=== PATIENT | female | born 1955 | race Caucasian/White ===

== ENCOUNTER 2020-09-22 18:05 | Inpatient (IN) ==
[2020-09-22] MEDS ORDERED: 0.9 % Sodium Chloride 1,000 ML IVC ONE (18:14)
[2020-09-22] MEDS ORDERED: Naloxone 0.4 MG/ML INJ IVP ONE (18:16)
[2020-09-22 19:35] LABS: Alanine Aminotransferase 26 Units/L (7-52); Albumin 3.2 g/dL (3.5-5.7); Alkaline Phosphatase 88 Units/L (34-104); Aspartate Amino Transferase 47 Units/L (13-39); BUN/Creatinine Ratio 11 (6-26); Bilirubin,Total 0.2 mg/dL (0.3-1.0); Blood Urea Nitrogen 25 mg/dL (8-23); Calcium 8.1 mg/dL (8.6-10.3); Carbon Dioxide 23 mEq/L (23-29); Chloride 94 mEq/L (98-107); Globulin 3.3 g/dL (2.4-3.5); Glucose 57 mg/dL (70-105); Osmolality,Calculated 264 (280-300); Potassium 2.9 mEq/L (3.5-5.1); Sodium 126 mEq/L (136-145); Total Protein 6.5 g/dL (6.4-8.9); Troponin I < 0.03 ng/mL (< 0.04); eGFR For African Americans 26 (> 60); eGFR For Non-African Americans 21 (> 60)
[2020-09-22] MEDS ORDERED: Azithromycin 500 MG in 0.9 % Sodium Chloride 250 ML IVPB ONE (19:40)
[2020-09-22 19:48] LABS: Thyroid Stimulating Hormone 1.509 mcIU/mL (0.340-5.600)
[2020-09-22 19:50] LABS: Bacteria,Urine Few per hpf (None-Few); Bilirubin,Urine Negative (Negative); Blood,Urine Moderate (Negative); Clarity,Urine Clear (Clear); Color,Urine Colorless (Yellow); Glucose,Urine (UA) Normal (Normal); Ketones,Urine Negative (Negative); Leukocyte Esterase,Urine Negative (Negative); Nitrite,Urine Negative (Negative); Protein,Urine 30 mg/dL (Neg-Trace); RBC,Urine 0-3 per hpf (0-3); Specific Gravity,Urine 1.006 (1.010-1.025); Squamous Epithelial Cell,Urine Few per hpf (None-Few); Urobilinogen,Urine Normal (Normal); WBC,Urine 0-3 per hpf (0-3)
[2020-09-22 20:43] LABS: Adenovirus Not Detected (Not Detect); Bordetella Pertussis Not Detected (Not Detect); Chlamydophila pneumoniae Not Detected (Not Detect); Coronavirus 229E Not Detected (Not Detect); Coronavirus HKU1 Not Detected (Not Detect); Coronavirus NL63 Not Detected (Not Detect); Coronavirus OC43 Not Detected (Not Detect); Human Metapneumovirus Not Detected (Not Detect); Human Rhinovirus/Enterovirus Not Detected (Not Detect); Influenza A Subtype 2009 H1 Not Detected (Not Detect); Influenza B Not Detected (Not Detect); Mycoplasma pneumoniae Not Detected (Not Detect); Parainfluenza Virus 1 Not Detected (Not Detect); Parainfluenza Virus 2 Not Detected (Not Detect); Parainfluenza Virus 3 Not Detected (Not Detect); Parainfluenza Virus 4 Not Detected (Not Detect); Respiratory Syncytial Virus Not Detected (Not Detect); SARS-CoV-2 Not Detected (Not Detect)
[2020-09-22 21:13] LABS: ABG Base Excess -4 mEq/L (-2 to 3); ABG HCO3 22 mEq/L (21-27); ABG Oxygen Saturation 94 % (95-98); ABG PCO2 47 mmHg (35-45); ABG PH 7.28 pH Units (7.32-7.45); ABG PO2 80 mmHg (85-104); ABG TCO2 24 mEq/L (20-26); Blood Gas Modality 2LPM
[2020-09-22] MEDS ORDERED: *HR* Dextrose 50 % in Water (Vial) 50 ML VIAL IVP ONE (21:22)
[2020-09-22] MEDS ORDERED: Ondansetron 4 MG/2 ML VIAL IVP PRN (21:35)
[2020-09-22] MEDS ORDERED: Acetaminophen 325 MG TABLET PO PRN (21:35)
[2020-09-22] MEDS ORDERED: Naloxone 0.4 MG/ML INJ IVP PRN (21:35)
[2020-09-22] MEDS ORDERED: *HR* Dextrose 50 % in Water (Vial) 50 ML VIAL IVP PRN (21:41)
[2020-09-22] MEDS ORDERED: D5% in Water 1,000 ML IVC PRN (21:41)
[2020-09-22] MEDS ORDERED: Dextrose Gel 15 GM/37.5 ML TUBE PO PRN ×2 (21:41)
[2020-09-22] MEDS ORDERED: cefTRIAXone 1,000 MG in Water for inj. (sterile) 10 ML IVP ONE (22:00)
[2020-09-22] MEDS ORDERED: methylPREDNISolone 125 MG/2 ML VIAL IVP ONE (22:16)
[2020-09-22] MEDS ORDERED: Ipratropium/Albuterol Neb 3 ML IH PRN (22:39)
[2020-09-22] MEDS: Ringers Solution, Lactated 1,000 ML IVC SCH (23:22)
[2020-09-23] MEDS: Insulin LISPRO 300 UNITS/3 ML VIAL SQ SCH ×5 (00:23→20:35)
[2020-09-23] MEDS: Ipratropium/Albuterol Neb 3 ML IH SCH ×7 (00:23→22:56)
[2020-09-23 01:29] LABS: INR 1.1; Prothrombin Time 12.3 Seconds (9.4-12.1)
[2020-09-23 01:39] LABS: Albumin 2.8 g/dL (3.5-5.7); Bilirubin,Total 0.1 mg/dL (0.3-1.0); Calcium 7.2 mg/dL (8.6-10.3); Globulin 2.9 g/dL (2.4-3.5); Magnesium 1.5 mg/dL (1.6-2.6); Phosphorous 3.4 mg/dL (2.7-4.5); Potassium 3.4 mEq/L (3.5-5.1); Total Protein 5.7 g/dL (6.4-8.9)
[2020-09-23 04:12] LABS: ABG Base Excess -3 mEq/L (-2 to 3); ABG HCO3 23 mEq/L (21-27); ABG Oxygen Saturation 93 % (95-98); ABG PCO2 45 mmHg (35-45); ABG PH 7.32 pH Units (7.32-7.45); ABG PO2 73 mmHg (85-104); ABG TCO2 24 mEq/L (20-26)
[2020-09-23] MEDS ORDERED: MethylPREDNISolone 40 MG/ML VIAL IVP SCH (06:00)
[2020-09-23] MEDS: *HR* Heparin 5,000 UNIT/ML VIAL SQ SCH ×4 (06:44→20:35)
[2020-09-23 06:47] LABS: VBG HCO3 22 mEq/L (21-27); VBG PCO2 39 mmHg (41-51); VBG PH 7.36 pH Units (7.32-7.42); VBG PO2 125 mmHg (25-50)
[2020-09-23 07:08] LABS: Eosinophils % 0.1 %; Hematocrit 32.2 % (35.3-44.9); Hemoglobin 9.9 g/dL (11.5-15.4); Immature Granulocytes % 0.5 % (0-4); Lymphocytes % 5.7 %; Mean Corpuscular HGB Conc 30.7 g/dL (31.6-35.5); Mean Corpuscular Hemoglobin 26.3 pg (28.0-33.3); Mean Corpuscular Volume 85.6 fL (83.0-100.0); Mean Platelet Volume 8.8 fL (9.4-12.4); Monocytes % 0.6 %; Platelet Count 311 K/mcL (140-400); Red Blood Count 3.76 M/mcL (3.82-4.97); Red Cell Distribution Width 16.4 % (11.5-14.5); Segmented Neutrophils % 92.8 %; White Blood Count 9.7 K/mcL (4.3-11.1)
[2020-09-23 07:09] LABS: Basophils % 0.3 %; Lymphocytes # 0.6 K/mcL (0.6-4.6); Monocytes # 0.1 K/mcL (0.0-1.3)
[2020-09-23] MEDS: Ringers Solution, Lactated 1,000 ML IVC SCH ×3 (07:13→13:48)
[2020-09-23 07:28] LABS: Creatinine,Urine 38 mg/dL; Protein/Creatinine Ratio,Urine 0.87 mg/mg (0.00-0.20); Sodium, Urine < 10.0 mEq/L
[2020-09-23] MEDS: cefTRIAXone 1,000 MG in Water for inj. (sterile) 10 ML IVP SCH (08:23)
[2020-09-23] MEDS ORDERED: Potassium Chloride Elixir 20 MEQ/15 ML UDC PO ONE (12:45)
[2020-09-23] MEDS ORDERED: Budesonide/Formoterol 160/4.5 1 PUFF INH IH PRN (13:00)
[2020-09-23] MEDS: BuPROPion XL (24 HR) 150 MG TABLET PO SCH (13:40)
[2020-09-23] MEDS: MethylPREDNISolone 40 MG/ML VIAL IVP SCH (16:22)
[2020-09-23] MEDS ORDERED: Insulin LISPRO 300 UNITS/3 ML VIAL SQ SCH (16:30)
[2020-09-23] MEDS ORDERED: cefTRIAXone 1,000 MG in Water for inj. (sterile) 10 ML IVP ONE (19:40)
[2020-09-23] MEDS: ARIPiprazole 5 MG TABLET PO SCH (20:34)
[2020-09-23] MEDS: traZODone 50 MG TABLET PO SCH (20:34)
[2020-09-23] MEDS: Ascorbic Acid 500 MG TABLET PO SCH (20:34)
[2020-09-23] MEDS: Azithromycin 500 MG in 0.9 % Sodium Chloride 250 ML IVPB SCH (20:35)
[2020-09-23] MEDS ORDERED: Insulin DETEMIR 100 UNIT/ML X5UNITS SQ SCH (21:00)
[2020-09-23] MEDS ORDERED: Famotidine 20 MG TABLET PO SCH ×2 (21:00)
[2020-09-23] MEDS: Latanoprost 2.5 ML BOTTLE BOTH EYES SCH (21:51)
[2020-09-24] MEDS: Ipratropium/Albuterol Neb 3 ML IH SCH ×5 (03:38→19:40)
[2020-09-24] MEDS: *HR* Heparin 5,000 UNIT/ML VIAL SQ SCH ×3 (05:56→20:43)
[2020-09-24] MEDS: MethylPREDNISolone 40 MG/ML VIAL IVP SCH (05:58)
[2020-09-24] MEDS: Ringers Solution, Lactated 1,000 ML IVC SCH ×2 (05:59→06:00)
[2020-09-24 08:58] LABS: Basophils % 0.1 %; Hematocrit 32.7 % (35.3-44.9); Hemoglobin 10.2 g/dL (11.5-15.4); Immature Granulocytes % 0.7 % (0-4); Mean Corpuscular HGB Conc 31.2 g/dL (31.6-35.5); Mean Corpuscular Hemoglobin 26.7 pg (28.0-33.3); Mean Corpuscular Volume 85.6 fL (83.0-100.0); Mean Platelet Volume 8.8 fL (9.4-12.4); Monocytes # 0.5 K/mcL (0.0-1.3); Monocytes % 3.1 %; Neutrophils # 14.8 K/mcL (1.6-8.9); Platelet Count 394 K/mcL (140-400); Red Blood Count 3.82 M/mcL (3.82-4.97); Red Cell Distribution Width 17.2 % (11.5-14.5); Segmented Neutrophils % 90.1 %; White Blood Count 16.4 K/mcL (4.3-11.1)
[2020-09-24] MEDS ORDERED: Zinc Sulfate 220 MG CAPSULE PO SCH (09:00)
[2020-09-24 09:24] LABS: Alanine Aminotransferase 20 Units/L (7-52); Albumin 3.1 g/dL (3.5-5.7); Alkaline Phosphatase 74 Units/L (34-104); Aspartate Amino Transferase 21 Units/L (13-39); BUN/Creatinine Ratio 16 (6-26); Bilirubin,Total 0.2 mg/dL (0.3-1.0); Blood Urea Nitrogen 16 mg/dL (8-23); Calcium 8.6 mg/dL (8.6-10.3); Carbon Dioxide 25 mEq/L (23-29); Chloride 104 mEq/L (98-107); Globulin 3.1 g/dL (2.4-3.5); Glucose 203 mg/dL (70-105); Osmolality,Calculated 289 (280-300); Potassium 3.4 mEq/L (3.5-5.1); Sodium 136 mEq/L (136-145); Total Protein 6.2 g/dL (6.4-8.9); eGFR For African Americans > 60 (> 60); eGFR For Non-African Americans 53 (> 60)
[2020-09-24] MEDS: amLODIPine 5 MG TABLET PO SCH (09:35)
[2020-09-24] MEDS: Ascorbic Acid 500 MG TABLET PO SCH ×2 (09:35→21:07)
[2020-09-24] MEDS: Aspirin Enteric Coated 81 MG Tablet PO SCH (09:35)
[2020-09-24] MEDS: cefTRIAXone 1,000 MG in Water for inj. (sterile) 10 ML IVP SCH (09:36)
[2020-09-24] MEDS: Insulin LISPRO 300 UNITS/3 ML VIAL SQ SCH ×4 (09:46→21:46)
[2020-09-24] MEDS: BuPROPion XL (24 HR) 150 MG TABLET PO SCH (14:27)
[2020-09-24] MEDS: Gabapentin 300 MG CAPSULE PO SCH ×2 (14:27→21:07)
[2020-09-24] MEDS ORDERED: Famotidine 20 MG TABLET PO SCH (21:00)
[2020-09-24] MEDS: traZODone 50 MG TABLET PO SCH (21:06)
[2020-09-24] MEDS: ARIPiprazole 5 MG TABLET PO SCH (21:06)
[2020-09-24] MEDS: Azithromycin 500 MG in 0.9 % Sodium Chloride 250 ML IVPB SCH (21:07)
[2020-09-24] MEDS: Latanoprost 2.5 ML BOTTLE BOTH EYES SCH (21:08)
[2020-09-25] MEDS: Ipratropium/Albuterol Neb 3 ML IH SCH ×4 (00:40→11:29)
[2020-09-25 02:21] LABS: Basophils % 0.2 %; Eosinophils % 0.3 %; Hematocrit 31.3 % (35.3-44.9); Hemoglobin 9.8 g/dL (11.5-15.4); Immature Granulocytes % 0.3 % (0-4); Lymphocytes # 3.3 K/mcL (0.6-4.6); Mean Corpuscular HGB Conc 31.3 g/dL (31.6-35.5); Mean Corpuscular Hemoglobin 27.4 pg (28.0-33.3); Mean Corpuscular Volume 87.4 fL (83.0-100.0); Mean Platelet Volume 8.8 fL (9.4-12.4); Monocytes # 1.1 K/mcL (0.0-1.3); Monocytes % 7.2 %; Neutrophils # 10.5 K/mcL (1.6-8.9); Platelet Count 383 K/mcL (140-400); Red Blood Count 3.58 M/mcL (3.82-4.97); Red Cell Distribution Width 17.3 % (11.5-14.5); White Blood Count 14.9 K/mcL (4.3-11.1)
[2020-09-25 02:35] LABS: BUN/Creatinine Ratio 22 (6-26); Blood Urea Nitrogen 21 mg/dL (8-23); Calcium 8.1 mg/dL (8.6-10.3); Carbon Dioxide 26 mEq/L (23-29); Chloride 109 mEq/L (98-107); Glucose 118 mg/dL (70-105); Magnesium 1.6 mg/dL (1.6-2.6); Osmolality,Calculated 294 (280-300); Sodium 140 mEq/L (136-145); eGFR For African Americans > 60 (> 60); eGFR For Non-African Americans 58 (> 60)
[2020-09-25] MEDS: *HR* Heparin 5,000 UNIT/ML VIAL SQ SCH (05:40)
[2020-09-25 08:20] VITALS: BP 158/79
[2020-09-25] MEDS: Insulin LISPRO 300 UNITS/3 ML VIAL SQ SCH ×2 (08:58→12:17)
[2020-09-25] MEDS ORDERED: MethylPREDNISolone 40 MG/ML VIAL IVP SCH (09:00)
[2020-09-25] MEDS ORDERED: Zinc Sulfate 220 MG CAPSULE PO SCH (09:00)
[2020-09-25] MEDS: cefTRIAXone 1,000 MG in Water for inj. (sterile) 10 ML IVP SCH (09:06)
[2020-09-25] MEDS: Aspirin Enteric Coated 81 MG Tablet PO SCH (09:08)
[2020-09-25] MEDS: Gabapentin 300 MG CAPSULE PO SCH (09:08)
[2020-09-25] MEDS: amLODIPine 5 MG TABLET PO SCH (09:09)
[2020-09-25] MEDS: Ascorbic Acid 500 MG TABLET PO SCH (09:09)
== END 2020-09-25 13:02 | disposition home or self-care (01) | DRG 193 ==
LOC: EMEROOARM 18:05 → 2ANU 18:05 → SUATTDRO 21:47 → 2ANU 22:38
PROVIDERS: ADMIT Internal Medicine; ATTEND Internal Medicine

== ENCOUNTER 2021-09-23 06:44 | Inpatient (IN) ==
[2021-09-23] MEDS ORDERED: methylPREDNISolone 125 MG/2 ML VIAL ONE (06:46)
[2021-09-23] MEDS ORDERED: Albuterol 2.5 MG/3 ML NEBULIZER ONE (06:47)
[2021-09-23] MEDS ORDERED: Ipratropium/Albuterol Neb 3 ML IH ONE (06:48)
[2021-09-23] MEDS ORDERED: methylPREDNISolone 125 MG/2 ML VIAL IVP ONE (06:48)
[2021-09-23] MEDS ORDERED: *HR* Atropine Sulfate 1 MG/10 ML SYRINGE IVP ONE ×3 (06:50→07:07)
[2021-09-23] MEDS ORDERED: Ipratropium/Albuterol Neb 3 ML ONE (06:50)
[2021-09-23] MEDS: 0.9 % Sodium Chloride 1,000 ML IVC ONE ×2 (07:00→08:36)
[2021-09-23 07:11] LABS: Basophils # 0.1 K/mcL (0.0-0.2); Basophils % 0.5 %; Eosinophils # 0.1 K/mcL (0.0-0.6); Eosinophils % 0.3 %; Hematocrit 33.1 % (35.3-44.9); Hemoglobin 9.9 g/dL (11.5-15.4); Immature Granulocytes % 0.6 % (0-4); Lymphocytes # 1.8 K/mcL (0.6-4.6); Lymphocytes % 10.2 %; Mean Corpuscular HGB Conc 29.9 g/dL (31.6-35.5); Mean Corpuscular Hemoglobin 29.6 pg (28.0-33.3); Mean Corpuscular Volume 99.1 fL (83.0-100.0); Mean Platelet Volume 8.9 fL (9.4-12.4); Monocytes # 0.5 K/mcL (0.0-1.3); Monocytes % 2.9 %; Platelet Count 435 K/mcL (140-400); Red Blood Count 3.34 M/mcL (3.82-4.97); Red Cell Distribution Width 14.8 % (11.5-14.5); Segmented Neutrophils % 85.5 %; White Blood Count 17.6 K/mcL (4.3-11.1)
[2021-09-23 07:16] LABS: INR 1.5; Prothrombin Time 16.5 Seconds (9.4-12.1)
[2021-09-23 07:18] LABS: Activated Partial Thrombo Time 37.8 Seconds (26.0-36.0)
[2021-09-23 07:18] LABS: ABG Base Excess -15 mEq/L (-2 to 3); ABG HCO3 14 mEq/L (21-27); ABG Oxygen Saturation 55 % (95-98); ABG PCO2 45 mmHg (35-45); ABG PH 7.11 pH Units (7.32-7.45); ABG PO2 39 mmHg (85-104); ABG TCO2 16 mEq/L (20-26); Blood Gas Modality BiLevel; Blood Gas VT 492 cc
[2021-09-23 07:42] LABS: Alanine Aminotransferase 19 Units/L (7-52); Albumin 3.9 g/dL (3.5-5.7); Albumin/Globulin Ratio 1.3 (1.1-2.2); Alkaline Phosphatase 87 Units/L (34-104); Aspartate Amino Transferase 33 Units/L (13-39); BUN/Creatinine Ratio 11 (6-26); Bilirubin,Indirect 0.3 mg/dL (0.0-1.0); Bilirubin,Total 0.3 mg/dL (0.3-1.0); Blood Urea Nitrogen 49 mg/dL (8-23); Calcium 9.2 mg/dL (8.6-10.3); Carbon Dioxide 13 mEq/L (23-29); Chloride 99 mEq/L (98-107); Creatine Kinase 458 Units/L (30-223); Glucose 314 mg/dL (70-105); Osmolality,Calculated 285 (280-300); Potassium 8.6 mEq/L (3.5-5.1); Sodium 125 mEq/L (136-145); Total Protein 6.9 g/dL (6.4-8.9); Troponin I < 0.03 ng/mL (< 0.04); eGFR For African Americans 12 (> 60); eGFR For Non-African Americans 10 (> 60)
[2021-09-23] MEDS ORDERED: 0.9 % Sodium Chloride 1,000 ML ONE (07:43)
[2021-09-23] MEDS ORDERED: Calcium Gluconate 1gm/50mL 1 GM/50 ML BAG IVPB ONE (07:45)
[2021-09-23] MEDS ORDERED: Insulin Human Regular 10 UNIT in 0.9 % Sodium Chloride 10 ML IV ONE ×2 (07:45→10:45)
[2021-09-23] MEDS: cefTRIAXone 1,000 MG in Water for inj. (sterile) 10 ML IVP ONE ×2 (07:52→08:41)
[2021-09-23] MEDS: Azithromycin 500 MG in 0.9 % Sodium Chloride 250 ML IVPB ONE ×2 (07:53→08:38)
[2021-09-23] MEDS: Norepinephrine 4 MG/254 ML IV.SOLN IVC SCH ×4 (08:13→23:18)
[2021-09-23] MEDS ORDERED: Calcium Gluconate 1gm/50mL 1 GM/50 ML BAG IVPB PRN ×2 (08:20)
[2021-09-23] MEDS ORDERED: *HR* Heparin 5,000 UNIT/ML VIAL IVP PRN (08:20)
[2021-09-23] MEDS ORDERED: Cefepime HCl 1,000 MG in Water for inj. (sterile) 10 ML IVP STA (08:23)
[2021-09-23] MEDS ORDERED: 0.9 % Sodium Chloride 1,000 ML PRIME SCH (08:30)
[2021-09-23] MEDS ORDERED: PrismaSATE BGK 2/0 5,000 ML CRRT SCH ×2 (08:30)
[2021-09-23 08:41] LABS: Bacteria,Urine Few per hpf (None-Few); Bilirubin,Urine Negative (Negative); Blood,Urine Negative (Negative); Clarity,Urine Turbid (Clear); Color,Urine Dark-Yellow (Yellow); Glucose,Urine (UA) Normal (Normal); Hyaline Casts,Urine Moderate per lpf (None Seen); Ketones,Urine Negative (Negative); Leukocyte Esterase,Urine Small (Negative); Mucus,Urine Few per lpf (None-Few); Nitrite,Urine Negative (Negative); PH,Urine 5.5 pH Units (5.0-8.0); Protein,Urine 70 mg/dL (Neg-Trace); Specific Gravity,Urine > 1.030 (1.010-1.025); Squamous Epithelial Cell,Urine Moderate per hpf (None-Few)
[2021-09-23 08:46] LABS: VBG Ionized Calcium 1.24 mmol/L (1.15-1.35)
[2021-09-23] MEDS ORDERED: *HR* Heparin 5,000 UNIT/ML VIAL ONE (08:58)
[2021-09-23] MEDS ORDERED: Heparin 1,000 UNITS/500 mL 500 ML ONE (08:59)
[2021-09-23 09:01] LABS: ABG Base Excess -11 mEq/L (-2 to 3); ABG HCO3 18 mEq/L (21-27); ABG Oxygen Saturation 99 % (95-98); ABG PCO2 53 mmHg (35-45); ABG PH 7.14 pH Units (7.32-7.45); ABG PO2 192 mmHg (85-104); ABG TCO2 20 mEq/L (20-26)
[2021-09-23] MEDS ORDERED: *HR* Rocuronium Bromide 50 MG/5 ML VIAL IVP ONE ×2 (09:03→21:00)
[2021-09-23] MEDS ORDERED: *HR* Etomidate 20 MG/10 ML AMPUL IVP ONE ×2 (09:03→21:00)
[2021-09-23 09:30] LABS: Influenza A PCR Negative (Negative); Influenza B PCR Negative (Negative); Resp. Syncytial Virus PCR Negative (Negative)
[2021-09-23 09:50] LABS: SARS-CoV-2 by PCR (In House) Negative (Negative)
[2021-09-23] MEDS ORDERED: Artificial Tears SOLN 15 ML BOTTLE BOTH EYES PRN (10:04)
[2021-09-23] MEDS: Budesonide/Formoterol 160/4.5 1 PUFF INH IH SCH ×2 (10:16→21:53)
[2021-09-23] MEDS: Sodium Bicarbonate 150 MEQ in D5% in Water 1,000 ML IVC SCH ×2 (10:17→23:12)
[2021-09-23 10:26] LABS: Calcium 8.9 mg/dL (8.6-10.3); Potassium 7.4 mEq/L (3.5-5.1)
[2021-09-23] MEDS ORDERED: Calcium Gluconate 1,000 MG/10 ML VIAL IVPB ONE (10:43)
[2021-09-23] MEDS ORDERED: *HR* Propofol 200 MG/20 ML VIAL IVP ONE ×2 (10:46→21:00)
[2021-09-23 10:52] LABS: ABG Base Excess -9 mEq/L (-2 to 3); ABG HCO3 20 mEq/L (21-27); ABG Oxygen Saturation 97 % (95-98); ABG PCO2 53 mmHg (35-45); ABG PH 7.18 pH Units (7.32-7.45); ABG PO2 111 mmHg (85-104); ABG TCO2 21 mEq/L (20-26); Blood Gas VT 450 cc
[2021-09-23] MEDS ORDERED: Calcium Gluconate 1gm/50mL BAG IVPB ONE (11:30)
[2021-09-23] MEDS ORDERED: Perflutren Lipid Microsphere 1.3 ML in 0.9 % Sodium Chloride 8.7 ML IVP PRN (12:13)
[2021-09-23 14:38] LABS: Hematocrit 33.5 % (35.3-44.9); Hemoglobin 9.9 g/dL (11.5-15.4); Mean Corpuscular HGB Conc 29.6 g/dL (31.6-35.5); Mean Corpuscular Hemoglobin 28.2 pg (28.0-33.3); Mean Corpuscular Volume 95.4 fL (83.0-100.0); Platelet Count 484 K/mcL (140-400); Red Blood Count 3.51 M/mcL (3.82-4.97); Red Cell Distribution Width 14.6 % (11.5-14.5); White Blood Count 23.3 K/mcL (4.3-11.1)
[2021-09-23 14:50] LABS: INR 1.6
[2021-09-23 14:53] LABS: Activated Partial Thrombo Time 35.9 Seconds (26.0-36.0)
[2021-09-23 15:06] LABS: Albumin 3.9 g/dL (3.5-5.7); Albumin/Globulin Ratio 1.3 (1.1-2.2); Bilirubin,Total 0.4 mg/dL (0.3-1.0); Globulin 2.9 g/dL (2.4-3.5); Total Protein 6.8 g/dL (6.4-8.9)
[2021-09-23] MEDS: Pantoprazole 40 MG VIAL IVP SCH (15:51)
[2021-09-23] MEDS: Artificial Tears SOLN 15 ML BOTTLE BOTH EYES SCH ×4 (15:51→23:57)
[2021-09-23] MEDS: FentaNYL (PF) 1,000 MCG/100 ML IV.SOLN IVC SCH (16:00)
[2021-09-23] MEDS ORDERED: *HR* Atropine Sulfate 1 MG/10 ML SYRINGE ONE (16:12)
[2021-09-23] MEDS ORDERED: *HR* Dextrose 50 % in Water (Syg) 50 ML SYRINGE IVP PRN (16:48)
[2021-09-23] MEDS ORDERED: Dextrose Gel 15 GM/37.5 ML TUBE PO PRN ×2 (16:48)
[2021-09-23] MEDS ORDERED: D5% in Water 1,000 ML IVC PRN (16:48)
[2021-09-23 17:44] LABS: VBG Ionized Calcium 1.19 mmol/L (1.15-1.35)
[2021-09-23] MEDS: Calcium Chloride 4,000 MG in 0.9 % Sodium Chloride 1,000 ML CRRT SCH (18:10)
[2021-09-23] MEDS: PrismaSATE BGK 4/2.5 5,000 ML CRRT SCH ×4 (18:10→21:48)
[2021-09-23] MEDS: Insulin LISPRO 300 UNITS/3 ML VIAL SUBQ SCH (19:28)
[2021-09-23 20:54] LABS: VBG Ionized Calcium 1.15 mmol/L (1.15-1.35)
[2021-09-23] MEDS ORDERED: *HR* Midazolam HCl 2 MG/2 ML VIAL IVP ONE (21:00)
[2021-09-23] MEDS ORDERED: Norepinephrine 4 MG/254 ML in 0.9% Sodium Chloride IVC ONE (21:00)
[2021-09-23] MEDS ORDERED: *HR* Atropine Sulfate 1 MG/10 ML SYRINGE IV ONE (21:00)
[2021-09-23] MEDS: Chlorhexidine Rinse 15 ML MOUTHWASH MM SCH (21:46)
[2021-09-23] MEDS: *HR* Heparin 5,000 UNIT/ML VIAL SQ SCH (21:47)
[2021-09-23 22:34] LABS: VBG Ionized Calcium 1.09 mmol/L (1.15-1.35)
[2021-09-23] MEDS: Cefepime HCl 1,000 MG in Water for inj. (sterile) 10 ML IVP SCH (23:56)
[2021-09-24 00:47] LABS: VBG Ionized Calcium 1.09 mmol/L (1.15-1.35)
[2021-09-24] MEDS: PrismaSATE BGK 4/2.5 5,000 ML CRRT SCH ×14 (01:31→22:08)
[2021-09-24] MEDS: Dexmedetomidine HCl 400 MCG/100 ML MLS IVC SCH ×4 (01:33→18:39)
[2021-09-24] MEDS: FentaNYL (PF) 1,000 MCG/100 ML IV.SOLN IVC SCH ×3 (02:17→17:17)
[2021-09-24 02:46] LABS: VBG Ionized Calcium 1.09 mmol/L (1.15-1.35)
[2021-09-24] MEDS: Norepinephrine 4 MG/254 ML IV.SOLN IVC SCH (03:11)
[2021-09-24] MEDS: Artificial Tears SOLN 15 ML BOTTLE BOTH EYES SCH ×5 (03:11→19:32)
[2021-09-24 03:49] LABS: Basophils % 0.1 %; Hemoglobin 9.3 g/dL (11.5-15.4); Immature Granulocytes % 0.7 % (0-4); Lymphocytes % 3.8 %; Red Cell Distribution Width 14.6 % (11.5-14.5)
[2021-09-24 03:51] LABS: Hematocrit 29.9 % (35.3-44.9); Mean Corpuscular HGB Conc 31.1 g/dL (31.6-35.5); Mean Corpuscular Hemoglobin 28.8 pg (28.0-33.3); Mean Corpuscular Volume 92.6 fL (83.0-100.0); Monocytes # 1.4 K/mcL (0.0-1.3); Monocytes % 5.2 %; Neutrophils # 24.6 K/mcL (1.6-8.9); Platelet Count 364 K/mcL (140-400); Red Blood Count 3.23 M/mcL (3.82-4.97); Segmented Neutrophils % 90.2 %; White Blood Count 27.3 K/mcL (4.3-11.1)
[2021-09-24 04:05] LABS: Albumin 3.5 g/dL (3.5-5.7); Magnesium 1.9 mg/dL (1.6-2.6); Phosphorous 3.2 mg/dL (2.7-4.5)
[2021-09-24 04:06] LABS: Albumin 3.6 g/dL (3.5-5.7); Albumin/Globulin Ratio 1.2 (1.1-2.2); Bilirubin,Total 0.3 mg/dL (0.3-1.0); Calcium 8.4 mg/dL (8.6-10.3); Globulin 2.9 g/dL (2.4-3.5); Potassium 6.4 mEq/L (3.5-5.1); Total Protein 6.5 g/dL (6.4-8.9)
[2021-09-24 04:07] LABS: Complement C3 102 mg/dL (87-200)
[2021-09-24 04:16] LABS: Platelet Estimate Normal (Normal)
[2021-09-24 04:28] LABS: VBG Ionized Calcium 1.06 mmol/L (1.15-1.35)
[2021-09-24 04:46] LABS: Estimated Average Glucose 134 mg/dl; Hemoglobin A1C 6.3 %
[2021-09-24] MEDS: *HR* Heparin 5,000 UNIT/ML VIAL SQ SCH (05:34)
[2021-09-24 05:45] LABS: ABG Base Excess 3 mEq/L (-2 to 3); ABG HCO3 27 mEq/L (21-27); ABG Oxygen Saturation 99 % (95-98); ABG PCO2 40 mmHg (35-45); ABG PH 7.44 pH Units (7.32-7.45); ABG PO2 149 mmHg (85-104); ABG TCO2 28 mEq/L (20-26); Blood Gas Modality ASSIST CONTROL; Blood Gas VT 450 cc
[2021-09-24] MEDS: Calcium Gluconate 1gm/50mL 1 GM/50 ML BAG IVPB SCH ×2 (05:59→07:15)
[2021-09-24] MEDS: Budesonide/Formoterol 160/4.5 1 PUFF INH IH SCH ×2 (08:08→21:25)
[2021-09-24] MEDS: Insulin LISPRO 300 UNITS/3 ML VIAL SUBQ SCH ×5 (08:39→19:33)
[2021-09-24] MEDS: Azithromycin 500 MG in 0.9 % Sodium Chloride 250 ML IVPB SCH (08:44)
[2021-09-24 08:45] LABS: VBG Ionized Calcium 1.14 mmol/L (1.15-1.35)
[2021-09-24 08:50] LABS: Protein/Creatinine Ratio,Urine 0.5 mg/mg (0.00-0.20); Sodium, Urine 89.4 mEq/L
[2021-09-24] MEDS: Cefepime HCl 1,000 MG in Water for inj. (sterile) 10 ML IVP SCH ×2 (08:55→15:51)
[2021-09-24] MEDS: Pantoprazole 40 MG VIAL IVP SCH (08:58)
[2021-09-24] MEDS: Chlorhexidine Rinse 15 ML MOUTHWASH MM SCH ×2 (09:04→20:15)
[2021-09-24] MEDS ORDERED: *HR* Heparin 5,000 UNIT/ML VIAL IVP PRN ×2 (11:29)
[2021-09-24] MEDS ORDERED: Heparin 25,000UNIT/250ML 1/2NS 25,000 UNIT/250 ML IV.SOLN IVC SCH ×2 (11:30→11:44)
[2021-09-24 12:47] LABS: VBG Ionized Calcium 1.09 mmol/L (1.15-1.35); VBG PH 7.46 pH Units (7.32-7.42)
[2021-09-24 12:49] LABS: INR 1.3
[2021-09-24 12:59] LABS: VBG Ionized Calcium 1.06 mmol/L (1.15-1.35)
[2021-09-24] MEDS: Heparin 25,000 UNIT/250 ML 25,000 UNIT/250 ML IV.SOLN IVC SCH (13:18)
[2021-09-24] MEDS: Calcium Chloride 4,000 MG in 0.9 % Sodium Chloride 1,000 ML CRRT SCH (15:43)
[2021-09-24 15:56] LABS: VBG HCO3 33 mEq/L (21-27); VBG Ionized Calcium 1.11 mmol/L (1.15-1.35); VBG PCO2 52 mmHg (41-51); VBG PH 7.41 pH Units (7.32-7.42); VBG PO2 123 mmHg (25-50)
[2021-09-24] MEDS: SODIUM CITRATE 500 ML CRRT SCH ×3 (16:31→23:08)
[2021-09-24 18:38] LABS: VBG Ionized Calcium 1.09 mmol/L (1.15-1.35)
[2021-09-24] MEDS: Sodium Bicarbonate 150 MEQ in D5% in Water 1,000 ML IVC SCH (19:28)
[2021-09-24 20:31] LABS: VBG Ionized Calcium 1.01 mmol/L (1.15-1.35)
[2021-09-24 22:20] LABS: VBG Ionized Calcium 1.03 mmol/L (1.15-1.35)
[2021-09-25] MEDS: Cefepime HCl 1,000 MG in Water for inj. (sterile) 10 ML IVP SCH ×2 (00:05→07:56)
[2021-09-25] MEDS: Artificial Tears SOLN 15 ML BOTTLE BOTH EYES SCH ×7 (00:05→23:53)
[2021-09-25] MEDS: FentaNYL (PF) 1,000 MCG/100 ML IV.SOLN IVC SCH ×2 (00:19→06:18)
[2021-09-25] MEDS: Dexmedetomidine HCl 400 MCG/100 ML MLS IVC SCH ×4 (00:20→19:57)
[2021-09-25] MEDS: Insulin LISPRO 300 UNITS/3 ML VIAL SUBQ SCH ×7 (00:29→23:38)
[2021-09-25] MEDS: PrismaSATE BGK 4/2.5 5,000 ML CRRT SCH ×8 (01:41→11:47)
[2021-09-25] MEDS: SODIUM CITRATE 500 ML CRRT SCH ×5 (01:58→13:48)
[2021-09-25 02:46] LABS: VBG Ionized Calcium 1.04 mmol/L (1.15-1.35)
[2021-09-25] MEDS: Calcium Chloride 4,000 MG in 0.9 % Sodium Chloride 1,000 ML CRRT SCH ×2 (03:09→11:45)
[2021-09-25 04:41] LABS: Basophils # 0.1 K/mcL (0.0-0.2); Basophils % 0.3 %; Eosinophils # 0.1 K/mcL (0.0-0.6); Eosinophils % 0.5 %; Hematocrit 24.8 % (35.3-44.9); Hemoglobin 7.9 g/dL (11.5-15.4); Immature Granulocytes % 0.5 % (0-4); Lymphocytes # 2.9 K/mcL (0.6-4.6); Lymphocytes % 14.7 %; Mean Corpuscular HGB Conc 31.9 g/dL (31.6-35.5); Mean Corpuscular Hemoglobin 29.7 pg (28.0-33.3); Mean Corpuscular Volume 93.2 fL (83.0-100.0); Monocytes # 1.2 K/mcL (0.0-1.3); Monocytes % 6.3 %; Neutrophils # 15.4 K/mcL (1.6-8.9); Platelet Count 267 K/mcL (140-400); Red Blood Count 2.66 M/mcL (3.82-4.97); Segmented Neutrophils % 77.7 %; White Blood Count 19.8 K/mcL (4.3-11.1)
[2021-09-25 04:52] LABS: VBG Ionized Calcium 1.06 mmol/L (1.15-1.35)
[2021-09-25 05:05] LABS: ABG Base Excess 8 mEq/L (-2 to 3); ABG HCO3 33 mEq/L (21-27); ABG Oxygen Saturation 89 % (95-98); ABG PCO2 49 mmHg (35-45); ABG PH 7.44 pH Units (7.32-7.45); ABG PO2 56 mmHg (85-104); ABG TCO2 35 mEq/L (20-26); Blood Gas Modality ASSIST CONTROL; Blood Gas VT 450 cc
[2021-09-25 05:26] LABS: Magnesium 1.8 mg/dL (1.6-2.6); Phosphorous 1.5 mg/dL (2.7-4.5)
[2021-09-25 05:34] LABS: Alanine Aminotransferase 27 Units/L (7-52); Albumin/Globulin Ratio 1.2 (1.1-2.2); Alkaline Phosphatase 61 Units/L (34-104); Aspartate Amino Transferase 22 Units/L (13-39); BUN/Creatinine Ratio 13 (6-26); Bilirubin,Total 0.2 mg/dL (0.3-1.0); Blood Urea Nitrogen 8 mg/dL (8-23); Carbon Dioxide 32 mEq/L (23-29); Chloride 101 mEq/L (98-107); Globulin 2.5 g/dL (2.4-3.5); Glucose 154 mg/dL (70-105); Osmolality,Calculated 289 (280-300); Sodium 139 mEq/L (136-145); Total Protein 5.5 g/dL (6.4-8.9); eGFR For African Americans > 60 (> 60); eGFR For Non-African Americans > 60 (> 60)
[2021-09-25] MEDS: Calcium Gluconate 1gm/50mL 1 GM/50 ML BAG IVPB SCH ×2 (05:44→06:35)
[2021-09-25 06:25] LABS: VBG Ionized Calcium 1.08 mmol/L (1.15-1.35)
[2021-09-25] MEDS: Azithromycin 500 MG in 0.9 % Sodium Chloride 250 ML IVPB SCH (07:57)
[2021-09-25] MEDS: Chlorhexidine Rinse 15 ML MOUTHWASH MM SCH ×2 (07:58→20:07)
[2021-09-25] MEDS: Pantoprazole 40 MG VIAL IVP SCH (07:58)
[2021-09-25] MEDS: Budesonide/Formoterol 160/4.5 1 PUFF INH IH SCH ×2 (08:15→19:45)
[2021-09-25 08:28] LABS: VBG Ionized Calcium 1.27 mmol/L (1.15-1.35)
[2021-09-25 10:24] LABS: VBG Ionized Calcium 1.26 mmol/L (1.15-1.35)
[2021-09-25] MEDS: Heparin 25,000 UNIT/250 ML 25,000 UNIT/250 ML IV.SOLN IVC SCH (13:31)
[2021-09-25] MEDS: Ampicillin/Sulbactam 1,500 MG in 0.9 % Sodium Chloride Mini Bag 100 ML IVPB SCH ×3 (13:38→23:52)
[2021-09-25] MEDS: Norepinephrine 4 MG/254 ML IV.SOLN IVC SCH (13:41)
[2021-09-25] MEDS ORDERED: *HR* Metoprolol 5 MG/5 ML VIAL IVP PRN (17:53)
[2021-09-25] MEDS ORDERED: Ondansetron 4 MG/2 ML VIAL IVP PRN (18:03)
[2021-09-25] MEDS ORDERED: Ondansetron 4 MG/2 ML VIAL ONE (18:05)
[2021-09-25] MEDS: BuPROPion XL (24 HR) 150 MG TABLET PO SCH (21:08)
[2021-09-25] MEDS: ARIPiprazole 10 MG TABLET PO SCH (21:08)
[2021-09-26] MEDS: Dexmedetomidine HCl 400 MCG/100 ML MLS IVC SCH ×3 (00:36→09:23)
[2021-09-26] MEDS: Norepinephrine 4 MG/254 ML IV.SOLN IVC SCH (01:48)
[2021-09-26] MEDS: Insulin LISPRO 300 UNITS/3 ML VIAL SUBQ SCH ×5 (04:27→20:45)
[2021-09-26] MEDS: Artificial Tears SOLN 15 ML BOTTLE BOTH EYES SCH ×2 (04:36→07:40)
[2021-09-26 06:05] LABS: Hematocrit 27.2 % (35.3-44.9); Hemoglobin 8.2 g/dL (11.5-15.4); Mean Corpuscular HGB Conc 30.1 g/dL (31.6-35.5); Mean Corpuscular Hemoglobin 28.4 pg (28.0-33.3); Mean Corpuscular Volume 94.1 fL (83.0-100.0); Mean Platelet Volume 8.9 fL (9.4-12.4); Platelet Count 283 K/mcL (140-400); Red Blood Count 2.89 M/mcL (3.82-4.97); Red Cell Distribution Width 14.6 % (11.5-14.5); Segmented Neutrophils % 79.9 %; White Blood Count 20.3 K/mcL (4.3-11.1)
[2021-09-26 06:06] LABS: Basophils # 0.1 K/mcL (0.0-0.2); Basophils % 0.4 %; Eosinophils # 0.2 K/mcL (0.0-0.6); Eosinophils % 0.9 %; Immature Granulocytes % 0.6 % (0-4); Lymphocytes # 2.6 K/mcL (0.6-4.6); Lymphocytes % 12.7 %; Monocytes # 1.1 K/mcL (0.0-1.3); Monocytes % 5.5 %; Neutrophils # 16.2 K/mcL (1.6-8.9); Nucleated Red Blood Cells 0.1 /100 WBC (0)
[2021-09-26] MEDS: Ampicillin/Sulbactam 1,500 MG in 0.9 % Sodium Chloride Mini Bag 100 ML IVPB SCH ×3 (06:16→17:20)
[2021-09-26 06:20] LABS: Alanine Aminotransferase 28 Units/L (7-52); Albumin 3.7 g/dL (3.5-5.7); Albumin/Globulin Ratio 1.3 (1.1-2.2); Alkaline Phosphatase 84 Units/L (34-104); Aspartate Amino Transferase 25 Units/L (13-39); BUN/Creatinine Ratio 10 (6-26); Bilirubin,Total 0.4 mg/dL (0.3-1.0); Blood Urea Nitrogen 10 mg/dL (8-23); Calcium 9.8 mg/dL (8.6-10.3); Carbon Dioxide 37 mEq/L (23-29); Chloride 100 mEq/L (98-107); Globulin 2.8 g/dL (2.4-3.5); Glucose 146 mg/dL (70-105); Osmolality,Calculated 296 (280-300); Potassium 3.5 mEq/L (3.5-5.1); Sodium 142 mEq/L (136-145); Total Protein 6.5 g/dL (6.4-8.9); eGFR For African Americans > 60 (> 60); eGFR For Non-African Americans 54 (> 60)
[2021-09-26] MEDS: Budesonide/Formoterol 160/4.5 1 PUFF INH IH SCH ×2 (07:24→19:54)
[2021-09-26] MEDS: BuPROPion XL (24 HR) 150 MG TABLET PO SCH (07:39)
[2021-09-26] MEDS: Chlorhexidine Rinse 15 ML MOUTHWASH MM SCH (07:39)
[2021-09-26] MEDS: Pantoprazole 40 MG VIAL IVP SCH (07:39)
[2021-09-26] MEDS: ARIPiprazole 10 MG TABLET PO SCH (07:40)
[2021-09-26] MEDS: Heparin 25,000 UNIT/250 ML 25,000 UNIT/250 ML IV.SOLN IVC SCH (11:47)
[2021-09-26] MEDS ORDERED: Dextrose Gel 15 GM/37.5 ML TUBE PO PRN ×2 (12:08)
[2021-09-26] MEDS ORDERED: *HR* Dextrose 50 % in Water (Syg) 50 ML SYRINGE IVP PRN (12:08)
[2021-09-26] MEDS ORDERED: Ondansetron 4 MG/2 ML VIAL IVP PRN (12:08)
[2021-09-26] MEDS ORDERED: *HR* Metoprolol 5 MG/5 ML VIAL IVP PRN (12:08)
[2021-09-26] MEDS ORDERED: *HR* Heparin 5,000 UNIT/ML VIAL IVP PRN ×2 (12:08)
[2021-09-26] MEDS ORDERED: Heparin 25,000 UNIT/250 ML 25,000 UNIT/250 ML IV.SOLN IVC SCH (12:08)
[2021-09-26] MEDS ORDERED: D5% in Water 1,000 ML IVC PRN (12:08)
[2021-09-26] MEDS ORDERED: Artificial Tears SOLN 15 ML BOTTLE BOTH EYES PRN (12:08)
[2021-09-26] MEDS: Furosemide 40 MG/4 ML VIAL IVP SCH (15:31)
[2021-09-27] MEDS: Ampicillin/Sulbactam 1,500 MG in 0.9 % Sodium Chloride Mini Bag 100 ML IVPB SCH ×4 (00:46→16:23)
[2021-09-27] MEDS: Insulin LISPRO 300 UNITS/3 ML VIAL SUBQ SCH ×5 (00:47→15:58)
[2021-09-27 06:48] LABS: Basophils # 0.1 K/mcL (0.0-0.2); Basophils % 0.4 %; Eosinophils # 0.7 K/mcL (0.0-0.6); Eosinophils % 4.2 %; Hematocrit 26.1 % (35.3-44.9); Hemoglobin 7.8 g/dL (11.5-15.4); Immature Granulocytes % 0.6 % (0-4); Lymphocytes # 3.1 K/mcL (0.6-4.6); Lymphocytes % 19.2 %; Mean Corpuscular HGB Conc 29.9 g/dL (31.6-35.5); Mean Corpuscular Hemoglobin 28.2 pg (28.0-33.3); Mean Corpuscular Volume 94.2 fL (83.0-100.0); Mean Platelet Volume 8.5 fL (9.4-12.4); Monocytes # 1.1 K/mcL (0.0-1.3); Monocytes % 7.1 %; Platelet Count 243 K/mcL (140-400); Red Blood Count 2.77 M/mcL (3.82-4.97); Red Cell Distribution Width 14.7 % (11.5-14.5); Segmented Neutrophils % 68.5 %; White Blood Count 16.1 K/mcL (4.3-11.1)
[2021-09-27 06:52] LABS: VBG Ionized Calcium 1.16 mmol/L (1.15-1.35)
[2021-09-27 07:06] LABS: Albumin 3.3 g/dL (3.5-5.7); Albumin/Globulin Ratio 1.3 (1.1-2.2); Bilirubin,Direct 0.1 mg/dL (0.0-0.2); Bilirubin,Indirect 0.3 mg/dL (0.0-1.0); Bilirubin,Total 0.4 mg/dL (0.3-1.0); Calcium 8.6 mg/dL (8.6-10.3); Globulin 2.6 g/dL (2.4-3.5); Potassium 3.1 mEq/L (3.5-5.1); Total Protein 5.9 g/dL (6.4-8.9)
[2021-09-27] MEDS ORDERED: BuPROPion XL (24 HR) 150 MG TABLET PO SCH (08:00)
[2021-09-27] MEDS: Ascorbic Acid 500 MG TABLET PO SCH ×2 (08:57→20:15)
[2021-09-27] MEDS: Aspirin Enteric Coated 81 MG Tablet PO SCH (08:58)
[2021-09-27] MEDS: ARIPiprazole 10 MG TABLET PO SCH (08:58)
[2021-09-27] MEDS: amLODIPine 5 MG TABLET PO SCH (08:58)
[2021-09-27] MEDS: Apixaban 5 MG TABLET PO SCH ×2 (08:58→21:34)
[2021-09-27] MEDS: Furosemide 40 MG/4 ML VIAL IVP SCH (08:59)
[2021-09-27] MEDS: BuPROPion XL (24 HR) 150 MG TABLET PO SCH (08:59)
[2021-09-27] MEDS: Cholecalciferol (D-3) 1,000 UNIT (25MCG) TABLET PO SCH (08:59)
[2021-09-27] MEDS: Magnesium Oxide 400 MG TABLET PO SCH ×3 (08:59→20:14)
[2021-09-27] MEDS ORDERED: Pantoprazole 40 MG VIAL IVP SCH (09:00)
[2021-09-27] MEDS: Budesonide/Formoterol 160/4.5 1 PUFF INH IH SCH ×2 (10:21→20:24)
[2021-09-27 14:00] LABS: Serine Protease-3 Antibody 1 AU/mL (0-19)
[2021-09-27] MEDS: traZODone 50 MG TABLET PO SCH (20:15)
[2021-09-27] MEDS: Latanoprost 2.5 ML BOTTLE BOTH EYES SCH (20:20)
[2021-09-27] MEDS ORDERED: ARIPIPRAZOLE 20 MG PO SCH (21:00)
[2021-09-28] MEDS: Ampicillin/Sulbactam 1,500 MG in 0.9 % Sodium Chloride Mini Bag 100 ML IVPB SCH ×2 (00:06→06:14)
[2021-09-28] MEDS: Apixaban 5 MG TABLET PO SCH ×2 (07:34→21:49)
[2021-09-28] MEDS: Ascorbic Acid 500 MG TABLET PO SCH ×2 (07:34→21:53)
[2021-09-28] MEDS: BuPROPion XL (24 HR) 150 MG TABLET PO SCH (07:34)
[2021-09-28] MEDS: ARIPiprazole 10 MG TABLET PO SCH (07:34)
[2021-09-28] MEDS: Magnesium Oxide 400 MG TABLET PO SCH ×3 (07:34→21:49)
[2021-09-28] MEDS: Cholecalciferol (D-3) 1,000 UNIT (25MCG) TABLET PO SCH (07:34)
[2021-09-28] MEDS: Furosemide 40 MG/4 ML VIAL IVP SCH (07:35)
[2021-09-28] MEDS: Aspirin Enteric Coated 81 MG Tablet PO SCH (07:35)
[2021-09-28] MEDS: amLODIPine 5 MG TABLET PO SCH (07:35)
[2021-09-28] MEDS: Budesonide/Formoterol 160/4.5 1 PUFF INH IH SCH ×2 (07:58→19:59)
[2021-09-28] MEDS: Insulin LISPRO 300 UNITS/3 ML VIAL SUBQ SCH ×3 (08:00→16:27)
[2021-09-28 09:58] LABS: Hematocrit 27.3 % (35.3-44.9); Hemoglobin 8.2 g/dL (11.5-15.4); Mean Corpuscular Hemoglobin 28.1 pg (28.0-33.3); Mean Corpuscular Volume 93.5 fL (83.0-100.0); Mean Platelet Volume 8.9 fL (9.4-12.4); Platelet Count 253 K/mcL (140-400); Red Blood Count 2.92 M/mcL (3.82-4.97); Red Cell Distribution Width 14.7 % (11.5-14.5); White Blood Count 16.8 K/mcL (4.3-11.1)
[2021-09-28 10:15] LABS: BUN/Creatinine Ratio 14 (6-26); Blood Urea Nitrogen 13 mg/dL (8-23); Calcium 8.3 mg/dL (8.6-10.3); Carbon Dioxide 35 mEq/L (23-29); Chloride 97 mEq/L (98-107); Glucose 152 mg/dL (70-105); Osmolality,Calculated 293 (280-300); Potassium 3.2 mEq/L (3.5-5.1); Sodium 140 mEq/L (136-145); eGFR For African Americans > 60 (> 60); eGFR For Non-African Americans 58 (> 60)
[2021-09-28] MEDS: Tiotropium 10 INH DOSE IH SCH (15:51)
[2021-09-28 19:54] LABS: Lambda Qnt Free Light Chains 26.83 mg/L (5.71-26.30)
[2021-09-28] MEDS ORDERED: NON-FORMULARY MEDICATION 1 EACH EACH (Fluticasone/Salmeterol [Advair 250-50 Diskus] 1 EACH IH SCH (21:00)
[2021-09-28] MEDS: traZODone 50 MG TABLET PO SCH (21:49)
[2021-09-28] MEDS: Heparin 25,000 UNIT/250 ML 25,000 UNIT/250 ML IV.SOLN IVC SCH (23:10)
[2021-09-29 03:10] LABS: Hematocrit 24.9 % (35.3-44.9); Hemoglobin 7.9 g/dL (11.5-15.4); Mean Corpuscular HGB Conc 31.7 g/dL (31.6-35.5); Mean Corpuscular Hemoglobin 29.4 pg (28.0-33.3); Mean Corpuscular Volume 92.6 fL (83.0-100.0); Mean Platelet Volume 8.7 fL (9.4-12.4); Platelet Count 260 K/mcL (140-400); Red Blood Count 2.69 M/mcL (3.82-4.97); Red Cell Distribution Width 14.9 % (11.5-14.5); White Blood Count 14.6 K/mcL (4.3-11.1)
[2021-09-29 03:53] LABS: BUN/Creatinine Ratio 15 (6-26); Blood Urea Nitrogen 14 mg/dL (8-23); Calcium 8.2 mg/dL (8.6-10.3); Carbon Dioxide 36 mEq/L (23-29); Chloride 98 mEq/L (98-107); Glucose 119 mg/dL (70-105); Magnesium 1.5 mg/dL (1.6-2.6); Osmolality,Calculated 292 (280-300); Potassium 3.3 mEq/L (3.5-5.1); Sodium 140 mEq/L (136-145); eGFR For African Americans > 60 (> 60); eGFR For Non-African Americans 58 (> 60)
[2021-09-29] MEDS: Latanoprost 2.5 ML BOTTLE BOTH EYES SCH (03:57)
[2021-09-29] MEDS ORDERED: Potassium Chloride Elixir 20 MEQ/15 ML UDC PO ONE (08:08)
[2021-09-29] MEDS ORDERED: Magnesium Sulfate 1 GM/102 ML PIGGYBACK IVPB ONE (08:08)
[2021-09-29] MEDS: Budesonide/Formoterol 160/4.5 1 PUFF INH IH SCH (08:56)
[2021-09-29] MEDS: Tiotropium 10 INH DOSE IH SCH (08:56)
[2021-09-29] MEDS: Aspirin Enteric Coated 81 MG Tablet PO SCH (09:02)
[2021-09-29] MEDS: amLODIPine 5 MG TABLET PO SCH (09:02)
[2021-09-29] MEDS: Ascorbic Acid 500 MG TABLET PO SCH (09:02)
[2021-09-29] MEDS: Cholecalciferol (D-3) 1,000 UNIT (25MCG) TABLET PO SCH (09:02)
[2021-09-29] MEDS: Furosemide 40 MG/4 ML VIAL IVP SCH (09:02)
[2021-09-29] MEDS: Magnesium Oxide 400 MG TABLET PO SCH ×2 (09:03→14:29)
[2021-09-29] MEDS: Apixaban 5 MG TABLET PO SCH (09:03)
[2021-09-29] MEDS: BuPROPion XL (24 HR) 150 MG TABLET PO SCH (09:08)
[2021-09-29] MEDS: ARIPiprazole 10 MG TABLET PO SCH (09:08)
[2021-09-29] MEDS: Insulin LISPRO 300 UNITS/3 ML VIAL SUBQ SCH ×3 (09:22→16:30)
[2021-09-29 11:24] VITALS: BP 126/77; PULSE 75; TEMP 98.4; O2SAT 93
[2021-09-29 12:11] LABS: Kappa Qnt Free Light Chains 18.07 mg/L (3.30-19.40)
[2021-09-29 12:14] LABS: ANA IgG by ELISA NONE DETECTED (None Detected)
[2021-09-30 08:21] LABS: Alpha 2 Globulin (PEP) 0.82 g/dL (0.48-1.05); Beta Globulin (PEP) 0.84 g/dL (0.48-1.10)
[2021-09-30 13:30] LABS: IFE Reflexed NOT DONE
== END 2021-09-29 17:35 | disposition home health service (06) | DRG 871 ==
LOC: 2NNU 06:44 → EMEROOARM 06:44 → ICNU 09:21 → SUATTDRO 09-24 10:50 → 2NNU 09-25 21:33 → 2ANU 09-28 16:34
PROVIDERS: ADMIT Internal Medicine; ATTEND Internal Medicine

== ENCOUNTER 2021-09-29 21:21 | Inpatient (IN) ==
[2021-09-29 23:03] LABS: Basophils % 0.2 %; Eosinophils # 0.8 K/mcL (0.0-0.6); Hematocrit 26.2 % (35.3-44.9); Hemoglobin 8.2 g/dL (11.5-15.4); Immature Granulocytes % 0.7 % (0-4); Lymphocytes # 2.4 K/mcL (0.6-4.6); Lymphocytes % 12.8 %; Mean Corpuscular HGB Conc 31.3 g/dL (31.6-35.5); Mean Corpuscular Hemoglobin 28.5 pg (28.0-33.3); Mean Platelet Volume 8.4 fL (9.4-12.4); Monocytes # 2.1 K/mcL (0.0-1.3); Monocytes % 11.2 %; Neutrophils # 13.4 K/mcL (1.6-8.9); Platelet Count 239 K/mcL (140-400); Red Blood Count 2.88 M/mcL (3.82-4.97); Red Cell Distribution Width 14.8 % (11.5-14.5); Segmented Neutrophils % 71.1 %; White Blood Count 18.8 K/mcL (4.3-11.1)
[2021-09-29 23:23] LABS: BUN/Creatinine Ratio 17 (6-26); Blood Urea Nitrogen 18 mg/dL (8-23); Calcium 8.5 mg/dL (8.6-10.3); Carbon Dioxide 33 mEq/L (23-29); Chloride 95 mEq/L (98-107); Glucose 191 mg/dL (70-105); Osmolality,Calculated 289 (280-300); Potassium 3.2 mEq/L (3.5-5.1); Sodium 136 mEq/L (136-145); eGFR For African Americans > 60 (> 60); eGFR For Non-African Americans 53 (> 60)
[2021-09-29 23:24] LABS: Troponin I < 0.03 ng/mL (< 0.04)
[2021-09-30 01:56] LABS: Bilirubin,Urine Negative (Negative); Blood,Urine Small (Negative); Clarity,Urine Clear (Clear); Color,Urine Light-Yellow (Yellow); Glucose,Urine (UA) 100 mg/dL (Normal); Ketones,Urine Negative (Negative); Leukocyte Esterase,Urine Moderate (Negative); Nitrite,Urine Negative (Negative); Protein,Urine 30 mg/dL (Neg-Trace); RBC,Urine 15-30 per hpf (0-3); Specific Gravity,Urine 1.011 (1.010-1.025); Squamous Epithelial Cell,Urine Few per hpf (None-Few); Urobilinogen,Urine Normal (Normal)
[2021-09-30] MEDS ORDERED: cefTRIAXone 1,000 MG in Water for inj. (sterile) 10 ML IVP ONE (02:26)
[2021-09-30] MEDS ORDERED: Melatonin 3 MG TABLET PO PRN (09:07)
[2021-09-30] MEDS ORDERED: Ondansetron 4 MG/2 ML VIAL IVP PRN (09:07)
[2021-09-30] MEDS ORDERED: Naloxone 0.4 MG/ML INJ IVP PRN (09:07)
[2021-09-30] MEDS ORDERED: Acetaminophen 325 MG TABLET PO PRN (09:07)
[2021-09-30] MEDS ORDERED: *HR* Dextrose 50 % in Water (Syg) 50 ML SYRINGE IVP PRN (10:34)
[2021-09-30] MEDS ORDERED: D5% in Water 1,000 ML IVC PRN (10:34)
[2021-09-30] MEDS ORDERED: Dextrose Gel 15 GM/37.5 ML TUBE PO PRN ×2 (10:34)
[2021-09-30] MEDS: BuPROPion XL (24 HR) 150 MG TABLET PO SCH (12:33)
[2021-09-30 13:37] LABS: VBG HCO3 31 mEq/L (21-27); VBG PCO2 37 mmHg (41-51); VBG PH 7.53 pH Units (7.32-7.42); VBG PO2 163 mmHg (25-50)
[2021-09-30] MEDS: Insulin LISPRO 300 UNITS/3 ML VIAL SUBQ SCH ×2 (13:52→16:29)
[2021-09-30] MEDS: Budesonide/Formoterol 160/4.5 1 PUFF INH IH SCH ×2 (13:53→20:09)
[2021-09-30] MEDS: Lactobacillus 1 EACH CAP.SPRINK PO SCH (20:04)
[2021-09-30] MEDS: Apixaban 5 MG TABLET PO SCH (20:04)
[2021-09-30] MEDS: traZODone 50 MG TABLET PO SCH (20:04)
[2021-09-30] MEDS: ARIPiprazole 10 MG TABLET PO SCH (20:05)
[2021-09-30] MEDS: Furosemide 20 MG TABLET PO SCH (20:06)
[2021-10-01 02:12] LABS: Hematocrit 25.9 % (35.3-44.9); Hemoglobin 8.2 g/dL (11.5-15.4); Mean Corpuscular HGB Conc 31.7 g/dL (31.6-35.5); Mean Corpuscular Hemoglobin 29.1 pg (28.0-33.3); Mean Corpuscular Volume 91.8 fL (83.0-100.0); Mean Platelet Volume 8.6 fL (9.4-12.4); Platelet Count 265 K/mcL (140-400); Red Blood Count 2.82 M/mcL (3.82-4.97); Red Cell Distribution Width 15.1 % (11.5-14.5); White Blood Count 12.4 K/mcL (4.3-11.1)
[2021-10-01 02:18] LABS: INR 1.5; Prothrombin Time 16.6 Seconds (9.4-12.1)
[2021-10-01 02:33] LABS: BUN/Creatinine Ratio 16 (6-26); Blood Urea Nitrogen 15 mg/dL (8-23); Calcium 8.5 mg/dL (8.6-10.3); Carbon Dioxide 30 mEq/L (23-29); Chloride 99 mEq/L (98-107); Glucose 152 mg/dL (70-105); Magnesium 1.6 mg/dL (1.6-2.6); Osmolality,Calculated 288 (280-300); Phosphorous 2.9 mg/dL (2.7-4.5); Potassium 3.5 mEq/L (3.5-5.1); Sodium 137 mEq/L (136-145); eGFR For African Americans > 60 (> 60); eGFR For Non-African Americans > 60 (> 60)
[2021-10-01] MEDS: Insulin LISPRO 300 UNITS/3 ML VIAL SUBQ SCH ×3 (08:15→17:01)
[2021-10-01] MEDS ORDERED: Perflutren Lipid Microsphere 1.3 ML in 0.9 % Sodium Chloride 8.7 ML IVP PRN (09:15)
[2021-10-01] MEDS: Apixaban 5 MG TABLET PO SCH ×2 (09:16→21:44)
[2021-10-01] MEDS: Lactobacillus 1 EACH CAP.SPRINK PO SCH ×2 (09:16→21:44)
[2021-10-01] MEDS: BuPROPion XL (24 HR) 150 MG TABLET PO SCH (09:16)
[2021-10-01] MEDS: Aspirin Enteric Coated 81 MG Tablet PO SCH (09:16)
[2021-10-01] MEDS: Famotidine 20 MG TABLET PO SCH (09:17)
[2021-10-01] MEDS: Furosemide 20 MG TABLET PO SCH ×2 (09:17→09:18)
[2021-10-01] MEDS: Furosemide 40 MG/4 ML VIAL IVP SCH (10:23)
[2021-10-01] MEDS: Tiotropium 10 INH DOSE IH SCH (11:07)
[2021-10-01] MEDS: Budesonide/Formoterol 160/4.5 1 PUFF INH IH SCH ×2 (11:07→19:45)
[2021-10-01] MEDS ORDERED: NON-FORMULARY MEDICATION 1 EACH EACH (Calcium Citrate 200 MG Tablet) PO SCH (15:00)
[2021-10-01] MEDS: Budesonide/Formoterol 80/4.5 1 PUFF INH IH SCH (19:48)
[2021-10-01] MEDS: ARIPiprazole 10 MG TABLET PO SCH (21:43)
[2021-10-01] MEDS: Ascorbic Acid 500 MG TABLET PO SCH (21:43)
[2021-10-01] MEDS: traZODone 50 MG TABLET PO SCH (21:43)
[2021-10-01] MEDS: Latanoprost 2.5 ML BOTTLE BOTH EYES SCH (22:49)
[2021-10-02] MEDS: Budesonide/Formoterol 160/4.5 1 PUFF INH IH SCH ×2 (07:50→19:58)
[2021-10-02] MEDS: Tiotropium 10 INH DOSE IH SCH (07:50)
[2021-10-02] MEDS: Budesonide/Formoterol 80/4.5 1 PUFF INH IH SCH ×2 (07:50→19:59)
[2021-10-02] MEDS: Insulin LISPRO 300 UNITS/3 ML VIAL SUBQ SCH ×3 (07:53→16:49)
[2021-10-02] MEDS: Furosemide 40 MG/4 ML VIAL IVP SCH (08:31)
[2021-10-02] MEDS: Ascorbic Acid 500 MG TABLET PO SCH ×2 (08:33→20:33)
[2021-10-02] MEDS: Aspirin Enteric Coated 81 MG Tablet PO SCH (08:33)
[2021-10-02] MEDS: BuPROPion XL (24 HR) 150 MG TABLET PO SCH (08:33)
[2021-10-02] MEDS: Zinc Sulfate 220 MG CAPSULE PO SCH (08:33)
[2021-10-02] MEDS: Multivit/Ca/Min/Fe/FA 1 TAB TABLET PO SCH (08:34)
[2021-10-02] MEDS: Famotidine 20 MG TABLET PO SCH (08:34)
[2021-10-02] MEDS: Lactobacillus 1 EACH CAP.SPRINK PO SCH ×2 (08:34→20:32)
[2021-10-02] MEDS: Apixaban 5 MG TABLET PO SCH (08:34)
[2021-10-02] MEDS: amLODIPine 5 MG TABLET PO SCH (08:34)
[2021-10-02] MEDS: Cholecalciferol (D-3) 1,000 UNIT (25MCG) TABLET PO SCH (08:34)
[2021-10-02 08:44] LABS: Basophils # 0.1 K/mcL (0.0-0.2); Basophils % 0.4 %; Eosinophils # 0.7 K/mcL (0.0-0.6); Eosinophils % 5.7 %; Hematocrit 24.8 % (35.3-44.9); Hemoglobin 7.5 g/dL (11.5-15.4); Immature Granulocytes % 0.4 % (0-4); Lymphocytes # 2.9 K/mcL (0.6-4.6); Lymphocytes % 23.6 %; Mean Corpuscular HGB Conc 30.2 g/dL (31.6-35.5); Mean Corpuscular Hemoglobin 28.2 pg (28.0-33.3); Mean Corpuscular Volume 93.2 fL (83.0-100.0); Mean Platelet Volume 8.7 fL (9.4-12.4); Monocytes # 1.5 K/mcL (0.0-1.3); Monocytes % 11.9 %; Neutrophils # 7.2 K/mcL (1.6-8.9); Platelet Count 296 K/mcL (140-400); Red Blood Count 2.66 M/mcL (3.82-4.97); Red Cell Distribution Width 14.9 % (11.5-14.5); White Blood Count 12.4 K/mcL (4.3-11.1)
[2021-10-02 09:10] LABS: Alanine Aminotransferase 26 Units/L (7-52); Albumin 3.1 g/dL (3.5-5.7); Alkaline Phosphatase 109 Units/L (34-104); Aspartate Amino Transferase 20 Units/L (13-39); BUN/Creatinine Ratio 14 (6-26); Bilirubin,Total 0.4 mg/dL (0.3-1.0); Blood Urea Nitrogen 13 mg/dL (8-23); Calcium 8.6 mg/dL (8.6-10.3); Carbon Dioxide 31 mEq/L (23-29); Chloride 100 mEq/L (98-107); Glucose 118 mg/dL (70-105); Osmolality,Calculated 287 (280-300); Potassium 3.2 mEq/L (3.5-5.1); Sodium 138 mEq/L (136-145); Total Protein 6.1 g/dL (6.4-8.9); eGFR For African Americans > 60 (> 60); eGFR For Non-African Americans 59 (> 60)
[2021-10-02 14:45] LABS: Hematocrit 28.8 % (35.3-44.9); Hemoglobin 8.4 g/dL (11.5-15.4)
[2021-10-02] MEDS: ARIPiprazole 10 MG TABLET PO SCH (20:32)
[2021-10-02] MEDS: traZODone 50 MG TABLET PO SCH (20:32)
[2021-10-02] MEDS: Latanoprost 2.5 ML BOTTLE BOTH EYES SCH (22:14)
[2021-10-03 05:34] LABS: Basophils % 0.3 %; Eosinophils # 0.6 K/mcL (0.0-0.6); Hematocrit 24.7 % (35.3-44.9); Hemoglobin 7.8 g/dL (11.5-15.4); Immature Granulocytes % 0.3 % (0-4); Lymphocytes % 20.8 %; Mean Corpuscular HGB Conc 31.6 g/dL (31.6-35.5); Mean Corpuscular Hemoglobin 28.9 pg (28.0-33.3); Mean Corpuscular Volume 91.5 fL (83.0-100.0); Mean Platelet Volume 8.6 fL (9.4-12.4); Monocytes # 1.3 K/mcL (0.0-1.3); Monocytes % 9.1 %; Neutrophils # 9.6 K/mcL (1.6-8.9); Platelet Count 327 K/mcL (140-400); Red Cell Distribution Width 14.8 % (11.5-14.5); Segmented Neutrophils % 65.5 %; White Blood Count 14.6 K/mcL (4.3-11.1)
[2021-10-03 05:53] LABS: Alanine Aminotransferase 28 Units/L (7-52); Albumin 3.4 g/dL (3.5-5.7); Albumin/Globulin Ratio 1.1 (1.1-2.2); Alkaline Phosphatase 115 Units/L (34-104); Aspartate Amino Transferase 20 Units/L (13-39); BUN/Creatinine Ratio 13 (6-26); Bilirubin,Total 0.3 mg/dL (0.3-1.0); Blood Urea Nitrogen 13 mg/dL (8-23); Calcium 9.1 mg/dL (8.6-10.3); Carbon Dioxide 29 mEq/L (23-29); Chloride 101 mEq/L (98-107); Globulin 3.1 g/dL (2.4-3.5); Glucose 146 mg/dL (70-105); Osmolality,Calculated 287 (280-300); Potassium 3.6 mEq/L (3.5-5.1); Sodium 137 mEq/L (136-145); Total Protein 6.5 g/dL (6.4-8.9); eGFR For African Americans > 60 (> 60); eGFR For Non-African Americans 55 (> 60)
[2021-10-03] MEDS: Budesonide/Formoterol 80/4.5 1 PUFF INH IH SCH ×2 (07:57→19:43)
[2021-10-03] MEDS: Tiotropium 10 INH DOSE IH SCH (07:57)
[2021-10-03] MEDS: Budesonide/Formoterol 160/4.5 1 PUFF INH IH SCH ×2 (07:57→19:44)
[2021-10-03] MEDS: Insulin LISPRO 300 UNITS/3 ML VIAL SUBQ SCH ×3 (08:17→16:55)
[2021-10-03] MEDS: Cholecalciferol (D-3) 1,000 UNIT (25MCG) TABLET PO SCH (09:18)
[2021-10-03] MEDS: Ascorbic Acid 500 MG TABLET PO SCH ×2 (09:18→21:29)
[2021-10-03] MEDS: BuPROPion XL (24 HR) 150 MG TABLET PO SCH (09:18)
[2021-10-03] MEDS: Multivit/Ca/Min/Fe/FA 1 TAB TABLET PO SCH (09:18)
[2021-10-03] MEDS: Aspirin Enteric Coated 81 MG Tablet PO SCH (09:18)
[2021-10-03] MEDS: Famotidine 20 MG TABLET PO SCH (09:18)
[2021-10-03] MEDS: Lactobacillus 1 EACH CAP.SPRINK PO SCH ×2 (09:18→21:28)
[2021-10-03] MEDS: Zinc Sulfate 220 MG CAPSULE PO SCH (09:18)
[2021-10-03] MEDS: Furosemide 40 MG/4 ML VIAL IVP SCH (09:18)
[2021-10-03] MEDS: amLODIPine 5 MG TABLET PO SCH (09:18)
[2021-10-03] MEDS: Apixaban 5 MG TABLET PO SCH ×2 (09:20→21:29)
[2021-10-03] MEDS: ARIPiprazole 10 MG TABLET PO SCH (21:29)
[2021-10-03] MEDS: traZODone 50 MG TABLET PO SCH (21:29)
[2021-10-03] MEDS: Latanoprost 2.5 ML BOTTLE BOTH EYES SCH (21:31)
[2021-10-04 00:56] LABS: Basophils % 0.3 %; Eosinophils # 0.5 K/mcL (0.0-0.6); Eosinophils % 3.4 %; Hematocrit 24.1 % (35.3-44.9); Hemoglobin 7.5 g/dL (11.5-15.4); Immature Granulocytes % 0.4 % (0-4); Lymphocytes # 2.8 K/mcL (0.6-4.6); Lymphocytes % 19.5 %; Mean Corpuscular HGB Conc 31.1 g/dL (31.6-35.5); Mean Corpuscular Hemoglobin 28.4 pg (28.0-33.3); Mean Corpuscular Volume 91.3 fL (83.0-100.0); Mean Platelet Volume 8.7 fL (9.4-12.4); Monocytes # 1.1 K/mcL (0.0-1.3); Monocytes % 7.4 %; Neutrophils # 9.9 K/mcL (1.6-8.9); Platelet Count 382 K/mcL (140-400); Red Blood Count 2.64 M/mcL (3.82-4.97); Red Cell Distribution Width 14.9 % (11.5-14.5); White Blood Count 14.3 K/mcL (4.3-11.1)
[2021-10-04 01:13] LABS: Alanine Aminotransferase 23 Units/L (7-52); Albumin 3.2 g/dL (3.5-5.7); Alkaline Phosphatase 104 Units/L (34-104); Aspartate Amino Transferase 16 Units/L (13-39); BUN/Creatinine Ratio 16 (6-26); Bilirubin,Total 0.3 mg/dL (0.3-1.0); Blood Urea Nitrogen 15 mg/dL (8-23); Calcium 8.9 mg/dL (8.6-10.3); Carbon Dioxide 27 mEq/L (23-29); Chloride 100 mEq/L (98-107); Globulin 3.1 g/dL (2.4-3.5); Glucose 167 mg/dL (70-105); Osmolality,Calculated 287 (280-300); Potassium 3.9 mEq/L (3.5-5.1); Sodium 136 mEq/L (136-145); Total Protein 6.3 g/dL (6.4-8.9); eGFR For African Americans > 60 (> 60); eGFR For Non-African Americans 60 (> 60)
[2021-10-04] MEDS: Budesonide/Formoterol 160/4.5 1 PUFF INH IH SCH ×2 (07:33→20:06)
[2021-10-04] MEDS: Tiotropium 10 INH DOSE IH SCH (07:33)
[2021-10-04] MEDS: Budesonide/Formoterol 80/4.5 1 PUFF INH IH SCH ×2 (07:34→20:06)
[2021-10-04] MEDS: Insulin LISPRO 300 UNITS/3 ML VIAL SUBQ SCH ×3 (08:24→16:40)
[2021-10-04] MEDS: Aspirin Enteric Coated 81 MG Tablet PO SCH (08:47)
[2021-10-04] MEDS: BuPROPion XL (24 HR) 150 MG TABLET PO SCH (08:48)
[2021-10-04] MEDS: Ascorbic Acid 500 MG TABLET PO SCH ×2 (08:48→21:18)
[2021-10-04] MEDS: Cholecalciferol (D-3) 1,000 UNIT (25MCG) TABLET PO SCH (08:48)
[2021-10-04] MEDS: Lactobacillus 1 EACH CAP.SPRINK PO SCH ×2 (08:48→21:18)
[2021-10-04] MEDS: Famotidine 20 MG TABLET PO SCH (08:48)
[2021-10-04] MEDS: Zinc Sulfate 220 MG CAPSULE PO SCH (08:48)
[2021-10-04] MEDS: Multivit/Ca/Min/Fe/FA 1 TAB TABLET PO SCH (08:48)
[2021-10-04] MEDS: Furosemide 40 MG/4 ML VIAL IVP SCH (08:48)
[2021-10-04] MEDS: amLODIPine 5 MG TABLET PO SCH (08:48)
[2021-10-04] MEDS: Furosemide 40 MG TABLET PO SCH (16:40)
[2021-10-04] MEDS: traZODone 50 MG TABLET PO SCH (21:18)
[2021-10-04] MEDS: ARIPiprazole 10 MG TABLET PO SCH (21:18)
[2021-10-04] MEDS: Latanoprost 2.5 ML BOTTLE BOTH EYES SCH (21:19)
[2021-10-05 03:20] LABS: Basophils # 0.1 K/mcL (0.0-0.2); Basophils % 0.4 %; Eosinophils # 0.5 K/mcL (0.0-0.6); Eosinophils % 3.5 %; Hematocrit 26.9 % (35.3-44.9); Hemoglobin 8.5 g/dL (11.5-15.4); Immature Granulocytes % 0.5 % (0-4); Lymphocytes # 2.7 K/mcL (0.6-4.6); Lymphocytes % 19.3 %; Mean Corpuscular HGB Conc 31.6 g/dL (31.6-35.5); Mean Corpuscular Hemoglobin 28.6 pg (28.0-33.3); Mean Corpuscular Volume 90.6 fL (83.0-100.0); Mean Platelet Volume 8.6 fL (9.4-12.4); Monocytes % 6.8 %; Neutrophils # 9.9 K/mcL (1.6-8.9); Platelet Count 432 K/mcL (140-400); Red Blood Count 2.97 M/mcL (3.82-4.97); Red Cell Distribution Width 14.6 % (11.5-14.5); Segmented Neutrophils % 69.5 %; White Blood Count 14.2 K/mcL (4.3-11.1)
[2021-10-05 03:47] LABS: Alanine Aminotransferase 22 Units/L (7-52); Albumin 3.6 g/dL (3.5-5.7); Albumin/Globulin Ratio 1.2 (1.1-2.2); Alkaline Phosphatase 106 Units/L (34-104); Aspartate Amino Transferase 16 Units/L (13-39); BUN/Creatinine Ratio 13 (6-26); Bilirubin,Total 0.4 mg/dL (0.3-1.0); Blood Urea Nitrogen 12 mg/dL (8-23); Calcium 9.2 mg/dL (8.6-10.3); Carbon Dioxide 27 mEq/L (23-29); Chloride 98 mEq/L (98-107); Globulin 3.1 g/dL (2.4-3.5); Glucose 140 mg/dL (70-105); Osmolality,Calculated 276 (280-300); Potassium 3.4 mEq/L (3.5-5.1); Sodium 132 mEq/L (136-145); Total Protein 6.7 g/dL (6.4-8.9); eGFR For African Americans > 60 (> 60); eGFR For Non-African Americans > 60 (> 60)
[2021-10-05] MEDS: Insulin LISPRO 300 UNITS/3 ML VIAL SUBQ SCH ×2 (07:22→12:20)
[2021-10-05] MEDS: Budesonide/Formoterol 80/4.5 1 PUFF INH IH SCH (08:30)
[2021-10-05] MEDS: Budesonide/Formoterol 160/4.5 1 PUFF INH IH SCH (08:31)
[2021-10-05] MEDS: Tiotropium 10 INH DOSE IH SCH (08:32)
[2021-10-05] MEDS: Lactobacillus 1 EACH CAP.SPRINK PO SCH (12:19)
[2021-10-05] MEDS: Famotidine 20 MG TABLET PO SCH (12:19)
[2021-10-05] MEDS: Aspirin Enteric Coated 81 MG Tablet PO SCH (12:19)
[2021-10-05] MEDS: Furosemide 40 MG TABLET PO SCH (12:19)
[2021-10-05] MEDS: Zinc Sulfate 220 MG CAPSULE PO SCH (12:20)
[2021-10-05] MEDS: Multivit/Ca/Min/Fe/FA 1 TAB TABLET PO SCH (12:20)
[2021-10-05] MEDS: Cholecalciferol (D-3) 1,000 UNIT (25MCG) TABLET PO SCH (12:20)
[2021-10-05] MEDS: Ascorbic Acid 500 MG TABLET PO SCH (12:20)
[2021-10-05] MEDS ORDERED: Lidocaine -MPF 2% 5 ML VIAL ONE (12:29)
[2021-10-05] MEDS: BuPROPion XL (24 HR) 150 MG TABLET PO SCH (14:22)
[2021-10-05] MEDS: amLODIPine 5 MG TABLET PO SCH (14:22)
[2021-10-05 15:59] LABS: Adenovirus Not Detected (Not Detect); Bordetella Pertussis Not Detected (Not Detect); Chlamydophila pneumoniae Not Detected (Not Detect); Coronavirus 229E Not Detected (Not Detect); Coronavirus HKU1 Not Detected (Not Detect); Coronavirus NL63 Not Detected (Not Detect); Coronavirus OC43 Not Detected (Not Detect); Human Metapneumovirus Not Detected (Not Detect); Human Rhinovirus/Enterovirus Not Detected (Not Detect); Influenza A Subtype 2009 H1 Not Detected (Not Detect); Influenza B Not Detected (Not Detect); Mycoplasma pneumoniae Not Detected (Not Detect); Parainfluenza Virus 1 Not Detected (Not Detect); Parainfluenza Virus 2 Not Detected (Not Detect); Parainfluenza Virus 3 Not Detected (Not Detect); Parainfluenza Virus 4 Not Detected (Not Detect); Respiratory Syncytial Virus Not Detected (Not Detect); SARS-CoV-2 Not Detected (Not Detect)
[2021-10-05 16:22] VITALS: BP 148/71; PULSE 71; TEMP 98.1; O2SAT 97
== END 2021-10-05 17:28 | DRG 689 ==
LOC: 3BNU 21:21 → EMEROOARM 21:21 → 3BNU 09-30 11:29 → SUATTDRO 10-01 19:36
PROVIDERS: ADMIT Internal Medicine; ATTEND Registered Nurse
PROC: ENDOCBX (2021-10-05 13:00)
PROC: ENDOEBX (2021-10-05 13:00)